=== PATIENT | female | born 1995 | race Caucasian/White ===

== ENCOUNTER 2017-12-19 18:14 | Outpatient (CLI) | payer MEDICAID ==
[~2017-12-19] VITALS: Ht 157.5 cm; Wt 67.7 kg
[2017-12-19] MEDS ORDERED: PREN1TAB60 PO (18:32)
[2017-12-19 18:45] VITALS: BP 106/63
[2017-12-19] MEDS ORDERED: KETOROLAC 30 MG/1 ML ONE (18:52)
[2017-12-19 18:53] LABS: MICROSCOPIC INDICATED
[2017-12-19] MEDS: KETOROLAC 30 MG/1 ML IM SCH ×2 (18:58→19:00)
[2017-12-19 19:06] LABS: AMPHETAMINE SCREEN, URINE Negative (Negative); BARBITURATE SCREEN, URINE Negative (Negative); BENZODIAZEPINE SCREEN, URINE Negative (Negative); CANNABINOID SCREEN, URINE Negative (Negative); COCAINE SCREEN, URINE Negative (Negative); METHADONE SCREEN, URINE Negative (Negative); OPIATE SCREEN, URINE Negative (Negative)
== END 2017-12-19 22:15 | disposition home or self-care (01) ==
LOC: LDOP 18:14
PROVIDERS: ATTEND Obstetrics & Gynecology
DX: O26.893 Other specified pregnancy related conditions, third trimester (principal); R10.9 Unspecified abdominal pain; Z3A.29 29 weeks gestation of pregnancy
CPT/HCPCS: 59025; 76770; 80307; 81001; 87086; 96372; 99211; J1885; G0463